=== PATIENT | female | born 1965 | race Two or more races ===

== ENCOUNTER 2023-03-24 13:32 | Emergency (ER) | payer OTHER ==
[~2023-03-24] VITALS: Ht 162.6 cm; Wt 83.9 kg
[2023-03-24] MEDS ORDERED: LEVOTHYROXINE25 MCG PO (13:50)
[2023-03-24] MEDS ORDERED: CEFTRIAXONE SODIUM 1,000 MG VIAL IM STA (15:08)
== END 2023-03-24 16:07 | disposition home or self-care (01) ==
LOC: ER 13:32
DX: J32.9 Chronic sinusitis, unspecified (principal)